=== PATIENT | female | born 1970 | race Caucasian/White ===

== ENCOUNTER 2024-08-03 21:15 | Emergency (ER) | payer BC ==
[2024-08-03] MEDS ORDERED: HYDROcodone/Acetaminophen 5/325 mg Tablet ONE (22:32)
== END 2024-08-03 22:50 | disposition home or self-care (01) ==
LOC: MADERS 21:15
DX: S42.031A Displaced fracture of lateral end of right clavicle, initial encounter for closed fracture (principal); W22.09XA Striking against other stationary object, initial encounter; Y93.K9 Activity, other involving animal care
CPT/HCPCS: 99283